=== PATIENT | female | born 1990 | race Two or more races ===

== ENCOUNTER 2022-05-04 15:25 | Outpatient (CLI) | payer OTHER ==
[~2022-05-04 15:25] MED LIST: FOLIC ACID0.8 M1; PRENA1 TRUE CO1 EACH; TUSSIN100 MG/51 PO
[2022-05-05] MEDS ORDERED: PRENATAL TABLE1 EAC5 (09:59)
[2022-05-05] MEDS ORDERED: FOLIC ACID0.8 M1 (09:59)
== END 2022-05-04 17:24 | disposition home or self-care (01) ==
LOC: PRENATAL 15:25
PROVIDERS: ATTEND Obstetrics & Gynecology Maternal & Fetal Medicine
DX: O26.849 Uterine size-date discrepancy, unspecified trimester (principal); O36.4XX0 Maternal care for intrauterine death, not applicable or unspecified; Z3A.25 25 weeks gestation of pregnancy

== ENCOUNTER → 2023-05-15 | Emergency (ER) | payer OTHER ==
[~2023-05-15] VITALS: Ht 160 cm; Wt 63.5 kg
[~2023-05-15] MED LIST changes: +PRENATAL TABLE1 EAC5
== END | disposition left against medical advice (07) ==
LOC: ER 07:22
DX: Z53.21 Procedure and treatment not carried out due to patient leaving prior to being seen by health care provider (principal)